=== PATIENT | female | born 1960 | race Caucasian/White ===

== ENCOUNTER 2019-07-21 23:34 | Emergency (ER) | payer BC, SELFPAY ==
--- NOTE | ~2019-07-21 | CT_ITS ---
EXAMINATION: CTA brain carotid DATE: 07/22/2019 00:45 INDICATION: Severe occipital headache. Nausea and vomiting. TECHNIQUE: Computed tomography (CT) of the head was performed without and subsequently with 100 cc Om nipaque 350 intravenous contrast. The mA was adjusted according to patient size. Iterative reconstruc tion technique was employed. Exam dose: 1603.23 mGy-cm total exam DLP. COMPARISON: None FINDINGS: No intracranial mass lesion or hemorrhage or cerebrovascular accident, midline shift or mas s effect is evident. No subdural or epidural hematoma. No fracture or bone destruction of the cranial vault. The mastoid air cells and included paranasal si nuses are normally developed and aerated. The aortic arch, great vessels, common carotid, internal and external carotid arteries and the intrac ranial carotid arteries and branches are patent, without any significant stenosis or evidence of diss ection or aneurysm. No cervical mass lesion or lymphadenopathy. IMPRESSION: No significant abnormality Reviewed, dictated and finalized at [facility] Reviewed, dictated and finalized at [facility]. ROOM SUPERVISOR IMPRESSION: No significant abnormality
[2019-07-21 23:22] VITALS: BP 160/91; PULSE 87; RESP 18; TEMP 36.6; O2SAT 99
--- NOTE | 2019-07-21 23:38 | ED.ABDPAIN ---
HPI - Abdominal Pain General Chief Complaint: Headache Stated Complaint: Sick Case Time Seen by Provider: 07/21/19 23:38 Source: patient, family and RN notes reviewed Mode of arrival: EMS Limitations: no limitations History of Present Illness HPI narrative: A 59 y/o female, with a hx of migraines and diverticulitis, presents to the ED with a constant, severe, worsening, posterior VENCES beginning earlier tonight while she was flying back from [place]. She states that she was on a cruise this week when she developed ABD pain with N/V/D and a fever of 100.7 4 days ago. She reports that she was seen at the [facility] and was dx with diverticulitis and was started on IV abx. She states that when they arrived back at [place] on that she went to the ED to get a ABD CT which showed no perforation and she was cleared to fly home. She reports that she was flying home tonight when she developed a dull posterior VENCES and dizziness. She notes that since the VENCES has continued to grow in intensity and is now very severe. She also notes some mild ABD pain and N/V/D but that it is now mostly resolved. She denies any fevers at this time as well as any visual changes, numbness, weakness, CP, or SOB. MD elicited complaint: other (Posterior VENCES) Pertinent past history: other (Migraines) Onset (ago): hour(s) (tonight) Pain Consistency: constant (worsening) Location: other (posterior head) Severity: severe Quality: dull Associated symptoms: nausea, vomiting, diarrhea, fever (resolved) and other (mild ABD pain, dizziness) Related Data Allergies Allergy/AdvReac Type Severity Reaction Status Date / Time No Known Allergies Allergy Verified 07/21/19 23:27 Review of Systems Review of Systems: Narrative: CONSTITUTIONAL: Reports a fever that has since resolved. EYES: Denies visual changes. CARDIOVASCULAR: Denies chest pain. RESPIRATORY: Denies dyspnea. GASTROINTESTINAL: Reports mild abdominal pain, nausea, vomiting, and diarrhea. NEUROLOGIC: Denies numbness, or weakness. Reports a severe posterior VENCES and dizziness. All systems reviewed & are unremarkable except as noted in HPI and below PMFSH Past Medical History Medical History (Updated 07/22/19 @ 02:33 by Dominique Restrepo MD) Diverticulitis Hx of migraines Medical history unknown Surgical History Surgical History (Updated 07/22/19 @ 02:25 by Ed Marrero) Surgical history unknown Social History Social History (Updated 07/22/19 @ 02:25 by Ed Marrero) Smoking status: Unknown if ever smoked Gender identity (if verbalized by the patient): Female Exam Narrative: Exam Narrative: GENERAL: Well nourished, tearful, hyperventilating HEAD: Normocephalic, atraumatic. EYES: 2+ PERRLA and EOMI. ENT: Nares clear, no rhinorrhea or epistaxis. Mucous membranes moist. NECK: Supple. CHEST: Clear to auscultation. No respiratory distress. Hyperventilating. HEART: Regular rate and rhythm. No murmur heard. Normal peripheral pulses. ABDOMEN: Soft, mild tenderness, nondistended, normal active bowel sounds. EXTREMITIES: Normal range of motion. No edema. SKIN: Warm, dry, no rash. NEURO: No focal deficits. Alert and oriented X3. EOMs intact without nystagmus. No facial droop/asymmetry noted bilaterally. Grimace intact. Intact sensation in face. Hearing intact bilaterally. Shoulder shrug intact. Strength 5/5 bilateral upper extremities. Strength 5/5 bilateral lower extremities. Reflexes 2+ patellar. Ambulatory exam deferred. Course Course Emergency Course: The patient was evaluated in the emergency department for headache. Patient's headache pain was not sudden or maximal in onset. It occurred suddenly while the patient was on the flight, and patient has no severe abdominal pain at this time. There are no focal deficits on exam. Subarachnoid hemorrhage is felt to be unlikely given the clinical symptoms and exam findings. There is no history of fever and neck is supple to evaluation without meningismus. Meningitis is felt
[2019-07-21] MEDS: MORPHINE SULFATE 4 MG/ML INJ IV PUSH (23:56)
[2019-07-21] MEDS: METOCLOPRAMIDE HCL INJ 10 MG/2 ML VIAL IV PUSH (23:56)
[2019-07-21] MEDS: MAGNESIUM SULF 2 GM/WATER 50ML 2 GM/50 ML BAG IVPB (23:57)
[2019-07-21] MEDS: SODIUM CHLORIDE 0.9% IV 1,000 ML 999 ML IV CONT (23:57)
[2019-07-22 00:06] VITALS: BP 155/89; PULSE 72; RESP 20; O2SAT 95
[2019-07-22 00:14] LABS: Basophils Percent Auto 0.2 % (0.2-1.2); Eosinophils Absolute Auto 0.1 K/mm3 (0-0.3); Hematocrit 40.7 % (37.0-47.0); Hemoglobin 13.7 g/dL (12.0-15.0); Immature Granulocyte Absolute 0.03 K/mm3 (0.00-0.031); Immature Granulocyte Percent A 0.6 % (0-0.5); Lymphocytes Absolute Auto 0.64 K/mm3 (0.9-3.2); Lymphocytes Percent Auto 13.4 % (18.3-44.2); Mean Corpuscular HGB Conc 33.7 g/dl (32-36); Mean Corpuscular Hemoglobin 30.3 pg (26-34); Mean Platelet Volume 10.3 fl (7.4-10.4); Monocytes Absolute Auto 0.4 K/mm3 (0.1-0.6); Monocytes Percent Auto 7.5 % (2.6-8.5); Neutrophils Absolute Auto 3.7 K/mm3 (1.3-6.7); Neutrophils Percent Auto 77.3 % (45.5-73.1); Platelet Count Result 177 k/mm3 (150-375); Red Blood Count 4.52 M/mm3 (4.2-5.4); Red Cell Distribution Width 13.6 % (11.5-14.5); White Blood Count 4.8 K/mm3 (4.5-10.0)
[2019-07-22 00:26] LABS: Alanine Aminotransferase 24 U/L (4-35); Albumin Level 3.9 g/dL (3.5-5.1); Alkaline Phosphatase 58 U/L (38-126); Aspartate Amino Transferase 23 U/L (14-36); Bilirubin,Total 0.7 mg/dL (0.2-1.3); Blood Urea Nitrogen 6 mg/dL (7-17); Calcium 8.7 mg/dL (8.4-10.2); Carbon Dioxide 16 mmol/L (22-30); Chloride 104 mmol/L (98-107); Estimated Glomerular Filt Rate > 60; Glucose 96 mg/dL (65-105); Lipase 57 U/L (23-300); Potassium 3.2 mmol/L (3.4-5.0); Sodium 139 mmol/L (137-145)
--- NOTE | 2019-07-22 01:09 | PC.NURSE ---
CALL RECEIVED FROM [facility] CT OF HEAD AND NECK ARE NEGATIVE. STATES REPORT WILL BE FAXED.
[2019-07-22 01:24] LABS: Add Urine Microscopic? YES; Appearance Urine Clear (Clear); Bacteria Urine Trace /hpf; Bilirubin Urine Negative (Negative); Blood Urine 1+ (Negative); Color Urine Colorless (Yellow); Glucose Urine UA Negative (Negative); Ketones Urine 2+ mg/dL (Negative); Leukocyte Esterase Ur Negative LEU/UL (Negative); Mucus Urine Rare /lpf; Nitrate Urine Negative (Negative); Protein Urine Negative (Negative); Specific Grav Ur 1.015 (1.001-1.035); Squamous Epithelial Cell Urine Occasional /hpf (Few); Urobilinogen Urine Negative mg/dL (<2.0); WBC Urine 0-3 /hpf
[2019-07-22 02:05] VITALS: BP 123/78; PULSE 70; RESP 20; O2SAT 94
[2019-07-22 03:06] VITALS: BP 118/74; PULSE 67; RESP 20; O2SAT 98
== END 2019-07-22 03:20 | disposition home or self-care (01) ==
PROVIDERS: Emergency Provider Emergency Medicine
DX: G43.009 Migraine without aura, not intractable, without status migrainosus (principal)
CPT/HCPCS: 36415; 70496; 70498; 80053; 81001; 83690; 85025; 96361; 96365; 96375; 99284; J0131; J1100; J1200; J2270; J2765; J3475; J7030; Q9967